=== PATIENT | male | born 1980 | race Caucasian/White ===

== ENCOUNTER 2019-12-13 16:28 | Emergency (ER) | payer BC ==
[~2019-12-13] VITALS: Ht 170.2 cm; Wt 76.9 kg
[2019-12-13 16:28] VITALS: BP 126/84
[2019-12-13] MEDS ORDERED: CREO24CA (16:43)
[2019-12-13] MEDS ORDERED: HUMA100I5 (16:43)
[2019-12-13] MEDS ORDERED: ELEX1TAB (16:43)
--- NOTE | 2019-12-13 17:14 | REP ---
Two-view chest: 12/13/2019. Indication: Chest trauma. Comparison: 04/26/2015. Findings: There is no evidence of lung contusion, rib fracture or pneumothorax. The lungs are clear. The cardiac silhouette is normal. There is no pleural effusion. Small radiopaque foreign body is noted within the upper right anterior chest. Additional cosmetic piercings are noted within the nipples bilaterally. Impression: Clear lungs. No acute post traumatic injury detected. Electronically Signed by Bronson Boland DO 12/13/2019 05:05 P
[2019-12-13] MEDS ORDERED: BOOSTRIX/ADACEL VACCINE (DIPHTH/PERTUSS/ACELL/TETANUS) 0.5ML SYR IM ONE (17:15)
[2019-12-13] MEDS ORDERED: KEFL500C17 PO (17:24)
[2019-12-13] MEDS ORDERED: CEPHALEXIN 500 MG CAP PO ONE (17:30)
== END 2019-12-13 17:47 | disposition home or self-care (01) ==
LOC: M ED 16:28
DX: S21.349A Puncture wound with foreign body of unspecified front wall of thorax with penetration into thoracic cavity, initial encounter (principal); W22.8XXA Striking against or struck by other objects, initial encounter; Y92.410 Unspecified street and highway as the place of occurrence of the external cause; Y99.8 Other external cause status; E11.9 Type 2 diabetes mellitus without complications; K21.9 Gastro-esophageal reflux disease without esophagitis; Z88.8 Allergy status to other drugs, medicaments and biological substances